=== PATIENT | male | born 1985 | race Caucasian/White ===

== ENCOUNTER 2017-03-18 18:29 | Emergency (ER) | payer SELFPAY ==
[~2017-03-18] VITALS: Ht 175.3 cm; Wt 72.2 kg
[2017-03-18 18:33] VITALS: BP 140/80; PULSE 86; RESP 16; TEMP 98.5; O2SAT 98
[2017-03-18] MEDS ORDERED: LIDOCAINE HCL 1% PF 30 ML VIAL ONE (19:33)
--- NOTE | 2017-03-18 20:00 | PD ---
HPI Chief Complaint: Laceration/Skin Injury Time Seen by Provider: 18:50 Travel History International Travel<30 days: No Contact w/Intl Traveler<30days: No Traveled to known affect area: No History of Present Illness HPI 31-year-old male presents emergency department for evaluation of laceration to right third digit. 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 He denies numbness or tingling in the digit. Bleeding is well-controlled. He has full range of motion of the finger And normal sensation. Tetanus immunization is up-to-date. [facility] Past Medical History Medical History: Denies Significant Hx Tetanus Vaccination: > 5 Years Influenza Vaccination: No Past Surgical History Surgical History: No Previous Surgery Social History Alcohol Use: No Tobacco Use: Yes (1 PPD) Substance Use: No Allergies-Medications (Allergen,Severity, Reaction): Coded Allergies: No Known Allergies (Unverified , 03/18/17) Reported Meds & Prescriptions Reported Meds & Active Scripts Active No Active Prescriptions or Reported Medications Review of Systems Except as stated in HPI: all other systems reviewed are Neg Physical Exam Narrative GENERAL: Well-nourished, well-developed patient. SKIN: Focused skin assessment warm/dry. 2 cm laceration right third digit distal/medial aspect. No tendon or vascular injury. No foreign body visualized. HEAD: Normocephalic. EYES: No scleral icterus. No injection or drainage. NECK: Supple, trachea midline. No JVD or lymphadenopathy. CARDIOVASCULAR: Regular rate and rhythm without murmurs, gallops, or rubs. RESPIRATORY: Breath sounds equal bilaterally. No accessory muscle use. GASTROINTESTINAL: Abdomen soft, non-tender, nondistended. MUSCULOSKELETAL: No cyanosis, or edema. 2 cm laceration right third digit distal /medial aspect. No tendon or vascular injury. No foreign body visualized. Patient has full range of motion against resistance. Normal sensation. Brisk cap refill. BACK: Nontender without obvious deformity. No CVA tenderness. Data Data Last Documented VS Vital Signs Date Time Temp Pulse Resp B/P Pulse Ox O2 Delivery O2 Flow Rate FiO2 03/18/17 18:33 98.5 86 16 140/80 98 Orders Lidocaine Pf 1% Inj (Xylocaine-Mpf 1% In (03/18/17 19:33) MDM Medical Decision Making Medical Screen Exam Complete: Yes Emergency Medical Condition: Yes Differential Diagnosis Finger laceration, tendon injury, other Narrative Course 31-year-old male presents emergency department for evaluation of a laceration to his right third digit caused by a box office clerk. The extremity is neurovascularly intact. There is no tendon injury. Wound repaired. Wound care and return precautions discussed the patient. He verbalizes understanding and agrees to plan. Procedures Procedure Narrative LACERATION LOCATION: Right third digit LENGTH: 2 cm NUMBER OF STITCHES/PABLO: For REPAIR: The area of the laceration was prepped with Betadine and sterilely draped. Digital block with 1% lidocaine. The wound was copiously irrigated and explored without evidence of foreign body, tendon injury or neurovascular injury. The wound was closed using 4-0 Ethilon. This was a single layer repair. A sterile dressing was applied. The patient was advised to keep the dressing clean and dry. Patient tolerated the procedure well. Diagnosis Primary Impression: Finger laceration Qualified Code: S61.212A - Laceration of right middle finger without foreign body without damage to nail, initial encounter Referrals: Primary Care Physician Additional Instructions: Do not submerge the wound in water. You may begin showering. Keep the area clean and dry. Sutures need to be removed in 7-10 days. Return to the emergency department if he developed new or worsening symptoms such as increasing pain, drainage, redness, fever or chills Scripts No Active Prescriptions or Reported Meds Disposition: 01 DISCHARGE HOME Condition: Stable Elyssa Matthews Mar 18, 2017 20:00
== END 2017-03-18 20:05 | disposition home or self-care (01) ==
LOC: PHEFT 18:29
DX: S61.212A Laceration without foreign body of right middle finger without damage to nail, initial encounter (principal); W26.8XXA Contact with other sharp object(s), not elsewhere classified, initial encounter
CPT/HCPCS: 12001